=== PATIENT | male | born 1995 | race Caucasian/White ===

== ENCOUNTER 2016-05-10 19:27 | Emergency (ER) | payer OTHER ==
[~2016-05-10] VITALS: Ht 170.2 cm; Wt 84.6 kg
[2016-05-10 19:40] VITALS: TEMP 36.8; Ht 170.2 cm; Wt 84.6 kg
[2016-05-10] MEDS ORDERED: IBUPROFEN 600 MG TAB PO STA (19:51)
[2016-05-10] MEDS ORDERED: XYLOCAINE 1%/SOD BICARB 20 ML VIAL INFIL ONE (20:00)
[2016-05-10 20:41] VITALS: BP 116/83; PULSE 60; O2SAT 99
--- NOTE | 2016-05-11 01:59 | EMERGENCY ROOM VISIT NOTE ---
ED Visit Note First contact with patient: 19:47 Chief Complaint: I cut my left eyebrow. History of Present Illness: Mr. Sykes is a 20-year-old white male who ambulates into the ED complaining of a right eyebrow laceration. Patient reports approximately one hour ago he was playing [employer] and accidentally struck himself with his racket and sustained a laceration. He reports immediately after the injury he had some mild dizziness but did not have loss of consciousness and since the injury he is not having any symptoms of head injury. He does report he control bleeding prior to arrival at the hospital but did not wash the wound. Currently associated with the wound he reports he has a stinging sensation in the eyebrow. He rates his discomfort 5/10. The pain is nonradiating. Pain worsens with palpation. He has not identified any alleviating factors related to the pain. He has not taken any medications for pain prior to arrival at the hospital. He denies headache, visual changes, hearing changes, difficulty speaking, difficulty swallowing, difficulty ambulating/coronary body movements, neck pain , chest pain, shortness of breath, abdominal pain, nausea, vomiting, extremity weakness/numbness/tingling. Review of Systems: As noted above in history of present illness. 8 body systems were reviewed and found to be negative as noted above. Past Medical History: Bronchitis. Current Medications: Patient denies. Allergies to Medications: Amoxicillin. Social History: Patient is currently University student; he feels safe in his home environment; he denies tobacco use but admits to alcohol use. Tetanus Immunization Status: Patient reports up-to-date. Physical Examination: Vital Signs: Date Time Temp Pulse Resp B/P Pulse Ox O2 Delivery O2 Flow Rate FiO2 05/10/16 20:41 60 18 116/83 99 Room Air 05/10/16 19:40 36.8 64 16 121/80 97 Room Air GENERAL: 20-year-old male in mild distress due to pain, nontoxic-appearing, afebrile and hemodynamically stable. NEUROLOGICAL: Awake, alert and oriented to person, place and time. Answering questions appropriately and following commands. Normal gait. Good hand eye coordination. No focal motor or sensory deficits. Short-term and long-term recall. Cranial nerves II through XII grossly intact. SKIN: Warm, dry and pink. Over the medial aspect of the left eyebrow patient has a 2.3 cm full-thickness vertical laceration that extends into the eyebrow. HEENT: Normocephalic. Skull: No bony deformity, crepitus, swelling or ecchymosis. No raccoon's eyes or crespo signs. No drainage from ears and air; no hemotympanum. Face: Soft tissue injury as noted above. Mild tenderness over the medial aspect of the eyebrow without bony deformity or crepitus. No other facial trauma noted. PERRLA. EOMI without nystagmus. Sclera white and conjunctiva pink. No malocclusion. Airway patent. No intraoral trauma. Speech normal. Trachea midline. No jugular venous distention. BACK: No tenderness over the bony cervical spine. Full range of motion of the cervical spine. ED Course: Patient is assessed as noted above. Wound Repair: Complexity: Basic Verbal consent was obtained after the risks and benefits were explained. The skin was prepped with betadine and a sterile field set. Wound edges of the wound was anesthetized with 1.6 ml buffered 1% lidocaine. The wound was explored for foreign bodies and none found. Copious irrigation was performed using sterile saline. With direct pressure the bleeding subsided. Debridement was not performed. The wound edges were approximated using 6-0 Ethilon with 5 simple interrupted sutures. Hemostasis and excellent approximation was achieved. Antibacterial ointment and a sterile dressing applied. No complications and the patient tolerated the procedure well. Patient was educated about tonight's findings and instructed on his treatment plan; he verbalizes understanding and agreement with this plan. Clinical Impression: Laceration of the left eyebrow. Disposition: Patient discharged home in stable condition; prior to departure he was reassessed and subjectively reported he was pain-free Plan: Comfort measures, wound care, signs of infection and signs of head injury were discussed with the patient. Patient was encouraged to follow-up with [facility] or return to the ED for signs of infection and/or suture removal in 5-6 days. Patient was encouraged return the ED for any signs of head injury or any new/ concerning symptoms.
== END 2016-05-10 20:40 | disposition home or self-care (01) ==
LOC: C.EDB 19:30 → C.EDD 20:40
DX: S01.112A Laceration without foreign body of left eyelid and periocular area, initial encounter (principal); W21.19XA Struck by other bat, racquet or club, initial encounter

== ENCOUNTER 2016-05-15 14:19 | Emergency (ER) | payer OTHER ==
[~2016-05-15] VITALS: Ht 170.2 cm; Wt 85.3 kg
[2016-05-15 14:21] VITALS: BP 128/84; PULSE 56; TEMP 36.5; O2SAT 96; Ht 170.2 cm; Wt 85.3 kg
--- NOTE | 2016-05-15 14:25 | EMERGENCY ROOM VISIT NOTE ---
ED Visit Note First contact with patient: 14:24 CHIEF COMPLAINT: Suture removal This patient returns to the ED today for removal of sutures that were placed 5 days ago. There has been no swelling, redness, or drainage from the wound. The patient feels like the laceration is healing well. REVIEW OF SYSTEMS: Head: No headache, injury or neck pain. Skin: No rash, new lesions, or masses. General: No fever or chills, fatigue, loss of appetite , or significant recent weight gain or loss. PMH: The patient is healthy; there is no significant medical or surgical history. SOCIAL HISTORY: Patient lives at home. PHYSICAL EXAM: Vital Signs: Reviewed Nurse's notes. There is a sutured wound on the left eyebrow with no signs of infection. There is no erythema, swelling , or tenderness. EMERGENCY DEPARTMENT COURSE: The sutures were removed without any difficulty and there was no separation of the wound edges. Patient inquired about helping decrease scarring. He was informed that he may use vitamin E and such as well as sunscreen to protect from the sun but was told to do so after allowing the wound to fully heal, telling him to start in about 1-2 weeks. He was also given the number for a plastic surgeon if he would like any type of her vision. He seemed happy with plan of care. He was educated upon worrisome symptoms in which to return. DIAGNOSIS: Healing laceration and suture removal Current/Historical Medications No Active Prescriptions or Reported Meds Allergies Coded Allergies: Amoxicillin (Verified Allergy, Mild, Hives, 05/10/16) Vital Signs Date Time Temp Pulse Resp B/P Pulse Ox O2 Delivery O2 Flow Rate FiO2 05/15/16 14:21 36.5 56 16 128/84 96 Room Air Departure Information Impression Primary Impression: Encounter for removal of sutures Dispostion Home / Self-Care Condition GOOD Prescriptions No Active Prescriptions or Reported Meds Referrals Damaris Shields MD Patient Instructions [facility] Additional Instructions DISCHARGE INSTRUCTIONS AND TREATMENT: Wash any remaining crusts off of the wound today and resume your normal activities. Look for signs of infection of the wound including: increased pain, swelling, foul discharge, streaking, or increased temperature. If any of these are noticed you should return to the Emergency Department for further assessment and treatment. As with any laceration you may have received nerve damage to the surrounding tissues. This damage may or may not be permanent. You should keep the area covered with sunscreen for the first 6 months to 1 year when at risk for exposure to help minimize scarring. You can also use scar reducing creams or Vitamin E oil to help minimize scarring. For pain control, you can use the following [id number] medicines (if >12 yo): - Regular strength (325mg/tab) Tylenol (acetaminophen) 2 tabs every 4-6 hours as needed. Do not exceed 12 tablets in a 24 hour period. Avoid taking more than 4 grams (4000 mg) of Tylenol per day. This includes any other sources of acetaminophen you may take on a regular basis. - Regular strength (200 mg/tab) Advil (ibuprofen) 1-2 tabs every 4-6 hours as needed. Do not exceed a dose of 3200 mg per day. Please protect the area from sun. You've been provided number for a plastic surgeon please call them if he would like any type of revision. (Dr. Shields) Return to the emergency department if your symptoms worsen despite treatment course outlined above.
== END 2016-05-15 15:02 | disposition home or self-care (01) ==
LOC: C.EDB 14:20 → C.EDD 15:02
DX: Z48.02 Encounter for removal of sutures (principal); S01.112A Laceration without foreign body of left eyelid and periocular area, initial encounter; X58.XXXA Exposure to other specified factors, initial encounter